=== PATIENT | female | born 1965 | race Caucasian/White ===

== ENCOUNTER 2018-05-03 10:50 | Emergency (ER) | payer OTHER ==
[~2018-05-03] VITALS: Ht 162.6 cm; Wt 74.8 kg
[2018-05-03 11:19] VITALS: BP 123/74; Ht 162.6 cm; Wt 74.8 kg
== END 2018-05-03 14:20 | disposition home or self-care (01) ==
LOC: ED 10:50
DX: S39.012A Strain of muscle, fascia and tendon of lower back, initial encounter (principal); X50.0XXA Overexertion from strenuous movement or load, initial encounter; Y93.89 Activity, other specified; Y92.89 Other specified places as the place of occurrence of the external cause; Y99.0 Civilian activity done for income or pay
CPT/HCPCS: 20552; J1885; J2001